=== PATIENT | female | born 1990 | race Caucasian/White ===

== ENCOUNTER → 2019-12-11 | Outpatient (CLI) | payer BC, OTHER ==
[~2019-12-11] MED LIST: CEPH500 PO; CIPR500 PO; DESOX.05TG TOP; DIPATR PO; HYDACE5 PO; HYDR1TAB94 PO; IBUP800 PO; METDOP250 PO; METO10 PO; NITR100CA PO; OXYACE5T PO; PENVK500 PO; PRED20 PO; PROG100; PROM25 PO; RXOXYACE PO; Verotin-Gr Cap1 EACH PO
[2019-12-11 11:17] LABS: Source, Urine Clean Catch
[2019-12-11 13:47] LABS: BASOPHILS ABSOLUTE AUTO 0.06 K/mm3 (0.00-0.23); BASOPHILS PERCENT AUTO 1 % (0-2); EOSINOPHILS ABSOLUTE AUTO 0.25 K/mm3 (0.00-0.68); EOSINOPHILS PERCENT AUTO 2 % (0-6); Hematocrit 39.6 % (33.0-51.0); Hemoglobin 12.5 g/dL (11.5-16.0); IMMATURE GRAN ABSOLUTE AUTO 0.09 K/mm3 (0.00-0.10); IMMATURE GRAN PERCENT AUTO 1 % (0-1); LYMPHOCYTES ABSOLUTE AUTO 2.07 K/mm3 (0.84-5.20); LYMPHOCYTES PERCENT AUTO 18 % (21-46); MONOCYTES ABSOLUTE AUTO 0.58 K/mm3 (0.16-1.47); MONOCYTES PERCENT AUTO 5 % (4-13); Mean Corpuscular HGB 27.3 pg (26.0-34.0); Mean Corpuscular HGB Conc 31.6 g/dL (31.5-36.5); Mean Corpuscular Volume 87 fL (80-100); Mean Platelet Volume 11.2 fL (9.1-12.4); NEUTROPHILS ABSOLUTE AUTO 8.53 K/mm3 (1.96-9.15); NEUTROPHILS PERCENT AUTO 74 % (41-73); Platelet Count 311 K/mm3 (150-400); RDW Coefficient Variation 14.1 % (11.7-14.2); RDW Standard Deviation 44.1 fL (35.1-46.3); Red Blood Cell Count 4.58 M/mm3 (3.80-5.20); White Blood Cell Count 11.58 K/mm3 (4.00-11.30)
[2019-12-11 14:00] LABS: Bacteria Many /hpf; Mucus Mod (0-Heavy); Squamous Epithelial Cells Many /hpf (Few); White Blood Cells, Urine 25-50 /hpf (0-5)
[2019-12-12 07:09] LABS: HBSAG SCREEN Negative (Negative); HIV SCREEN 4TH GENERATION WRFX Non Reactive (Non Reactive)
== END | disposition home or self-care (01) ==
LOC: LAB SHORT 11:12 → LAB 11:12
PROVIDERS: Obstetrics & Gynecology
DX: O99.211 Obesity complicating pregnancy, first trimester (principal)
CPT/HCPCS: 36415; 81015; 83036; 84443; 85025; 86592; 86762; 86850; 86900; 86901; 87086; 87340; 87389

== ENCOUNTER → 2020-04-15 | Outpatient (CLI) | payer BC, OTHER ==
[2020-04-15 15:42] LABS: Protein, Urine Quantitative 7.6 mg/dL (0.0-11.9)
== END | disposition home or self-care (01) ==
LOC: LAB SHORT 14:35 → LAB 14:35
PROVIDERS: Obstetrics & Gynecology
DX: O13.9 Gestational [pregnancy-induced] hypertension without significant proteinuria, unspecified trimester (principal)
CPT/HCPCS: 84156

== ENCOUNTER → 2020-06-03 | Outpatient (CLI) | payer BC, OTHER ==
[~2020-06-03] MED LIST changes: +ASPI81CH PO; +NIFE90ER PO
[2020-06-03 12:24] LABS: Protein, Urine Quantitative 19.2 mg/dL (0.0-11.9)
== END ==
LOC: LAB 08:00 → LAB SHORT 08:00
PROVIDERS: Obstetrics & Gynecology
DX: O16.9 Unspecified maternal hypertension, unspecified trimester (principal)
CPT/HCPCS: 81050; 84156

== ENCOUNTER → 2020-06-03 | Outpatient (CLI) | payer BC, OTHER ==
[2020-06-03 18:50] LABS: BASOPHILS ABSOLUTE AUTO 0.05 K/mm3 (0.00-0.23); BASOPHILS PERCENT AUTO 0 % (0-2); EOSINOPHILS PERCENT AUTO 2 % (0-6); Hemoglobin 11.4 g/dL (11.5-16.0); IMMATURE GRAN ABSOLUTE AUTO 0.26 K/mm3 (0.00-0.10); IMMATURE GRAN PERCENT AUTO 2 % (0-1); LYMPHOCYTES PERCENT AUTO 14 % (21-46); MONOCYTES ABSOLUTE AUTO 0.75 K/mm3 (0.16-1.47); MONOCYTES PERCENT AUTO 6 % (4-13); Mean Corpuscular HGB Conc 31.7 g/dL (31.5-36.5); Mean Corpuscular Volume 85 fL (80-100); Mean Platelet Volume 11.4 fL (9.1-12.4); NEUTROPHILS ABSOLUTE AUTO 10.28 K/mm3 (1.96-9.15); NEUTROPHILS PERCENT AUTO 77 % (41-73); Platelet Count 264 K/mm3 (150-400); RDW Coefficient Variation 14.8 % (11.7-14.2); RDW Standard Deviation 45.5 fL (35.1-46.3); Red Blood Cell Count 4.23 M/mm3 (3.80-5.20); White Blood Cell Count 13.44 K/mm3 (4.00-11.30)
[2020-06-03 20:24] LABS: Alanine Aminotransfer (ALT/SGP 65 U/L (12-78); Albumin, Blood 2.8 g/dL (3.4-5.0); Albumin/Globulin Ratio 0.7 (0.8-1.8); Alk Phos 136 U/L (50-136); Anion Gap 12 mmol/L (6-16); Aspartate Aminotrans (AST/SGOT 44 U/L (12-37); Bilirubin, Total 0.4 mg/dL (0.1-1.0); Blood Urea Nitrogen 7 mg/dL (8-24); Bun/Creatinine Ratio 13.9 (12.0-20.0); CO2, Blood 19 mmol/L (21-32); Chloride, Blood 107 mmol/L (98-108); Globulin, Blood 4.3 g/dL (2.2-4.0); Glomerular Filtration Rate >60 (60-); Glucose, Blood 72 mg/dL (70-99); Potassium, Blood 3.6 mmol/L (3.5-5.5); Sodium, Blood 138 mmol/L (136-145); Total Protein, Blood 7.1 g/dL (6.4-8.2)
== END | disposition home or self-care (01) ==
LOC: LAB 17:10
PROVIDERS: Obstetrics & Gynecology
DX: O09.892 Supervision of other high risk pregnancies, second trimester (principal); O12.02 Gestational edema, second trimester; O13.2 Gestational [pregnancy-induced] hypertension without significant proteinuria, second trimester
CPT/HCPCS: 36415; 80053; 85025

== ENCOUNTER 2023-01-10 01:47 | Emergency (ER) | payer BC, OTHER ==
[~2023-01-10] VITALS: Ht 162.6 cm; Wt 129.7 kg
[2023-01-10 04:37] LABS: BASOPHILS ABSOLUTE AUTO 0.05 K/mm3 (0.00-0.23); BASOPHILS PERCENT AUTO 0 % (0-2); EOSINOPHILS ABSOLUTE AUTO 0.06 K/mm3 (0.00-0.68); EOSINOPHILS PERCENT AUTO 1 % (0-6); Hematocrit 41.3 % (33.0-51.0); Hemoglobin 12.9 g/dL (11.5-16.0); IMMATURE GRAN ABSOLUTE AUTO 0.06 K/mm3 (0.00-0.10); IMMATURE GRAN PERCENT AUTO 1 % (0-1); LYMPHOCYTES ABSOLUTE AUTO 1.53 K/mm3 (0.84-5.20); LYMPHOCYTES PERCENT AUTO 12 % (21-46); MONOCYTES ABSOLUTE AUTO 0.54 K/mm3 (0.16-1.47); MONOCYTES PERCENT AUTO 4 % (4-13); Mean Corpuscular HGB 26.6 pg (26.0-34.0); Mean Corpuscular HGB Conc 31.2 g/dL (31.5-36.5); Mean Corpuscular Volume 85 fL (80-100); Mean Platelet Volume 10.7 fL (9.1-12.4); NEUTROPHILS ABSOLUTE AUTO 10.16 K/mm3 (1.96-9.15); NEUTROPHILS PERCENT AUTO 82 % (41-73); Platelet Count 318 K/mm3 (150-400); RDW Coefficient Variation 14.3 % (11.7-14.2); RDW Standard Deviation 44.1 fL (35.1-46.3); Red Blood Cell Count 4.85 M/mm3 (3.80-5.20)
[2023-01-10 05:03] LABS: Albumin, Blood 3.8 g/dL (3.4-5.0); Bilirubin, Total 0.3 mg/dL (0.1-1.0); Calcium, Blood 8.6 mg/dL (8.5-10.1); Creatinine, Blood 0.82 mg/dL (0.40-1.00); Total Protein, Blood 7.8 g/dL (6.4-8.2)
[2023-01-10 06:24] LABS: Source, Urine Clean Catch
[2023-01-10 06:56] LABS: Appearance, Urine Hazy (Clear); Bilirubin, Urine Neg (Neg); Blood, Urine 5+ (Neg); Color, Urine Amber (P-Yellow); Glucose Qualitative, Urine Neg (Neg); Ketones, Urine 1+ (Neg); Leukocyte Esterase, Urine 1+ (Neg); Nitrite, Urine Neg (Neg); Protein, Urine 2+ (Neg); Urobilinogen, Urine 1+ (Normal)
[2023-01-10 07:08] LABS: Calcium Oxalate Crystals Mod /hpf; Mucus Heavy (0-Heavy)
[2023-01-10 07:09] LABS: Bacteria Not Seen /hpf; Squamous Epithelial Cells Few /hpf (Few)
[2023-01-10] MEDS ORDERED: Percocet 5-3251 EACH PO ×2 (07:15→08:07)
[2023-01-10] MEDS ORDERED: TAMS.4ER PO (07:15)
[2023-01-10] MEDS ORDERED: ONDA4ODT MM (07:15)
[2023-01-10 08:00] VITALS: BP 115/58
== END 2023-01-10 08:13 | disposition home or self-care (01) ==
LOC: ER 01:47
PROVIDERS: Student in an Organized Health Care Education/Training Program
DX: N13.2 Hydronephrosis with renal and ureteral calculous obstruction (principal); I10 Essential (primary) hypertension
CPT/HCPCS: 74177; 80053; 81001; 83690; 85025; 96361; 96374-59; 96375; 96376; 99284-25; A9270; J1170; J1885; J2405; J7030; Q9967

== ENCOUNTER 2024-04-20 00:43 | Day surgery (SDC) | payer BC, OTHER ==
[~2024-04-20 00:43] MED LIST changes: +ONDA4ODT MM; +Percocet 5-3251 EACH PO; +Sod Ferric Gluc Complx/Sucrose 125 MG in NS 100 ML IV SCH; +TAMS.4ER PO
[2024-04-20 10:22] VITALS: BP 151/97
[2024-04-21] MEDS ORDERED: SODIUM FERRIC GLUCON IV (12:13)
== END 2024-04-20 12:02 | disposition home or self-care (01) ==
LOC: ATC 00:43
DX: E61.1 Iron deficiency (principal); R53.83 Other fatigue; E66.812 Obesity, class 2; Z68.35 Body mass index [BMI] 35.0-35.9, adult
CPT/HCPCS: 96365; J2916

== ENCOUNTER 2024-04-21 00:30 | Day surgery (SDC) | payer BC, OTHER ==
[~2024-04-21 00:30] MED LIST changes: -Sod Ferric Gluc Complx/Sucrose 125 MG in NS 100 ML IV SCH
[2024-04-21] MEDS ORDERED: Sod Ferric Gluc Complx/Sucrose 125 MG in NS 100 ML IV SCH (01:00)
[2024-04-21 10:15] VITALS: BP 123/77
[2024-04-21] MEDS ORDERED: SODIUM FERRIC GLUCON IV (12:13)
== END 2024-04-21 11:21 | disposition home or self-care (01) ==
LOC: ATC 00:30
DX: E61.1 Iron deficiency (principal); R53.83 Other fatigue; E66.812 Obesity, class 2; Z68.35 Body mass index [BMI] 35.0-35.9, adult; Z79.899 Other long term (current) drug therapy
CPT/HCPCS: 96365; J2916

== ENCOUNTER 2024-04-24 21:48 | Emergency (ER) | payer BC, OTHER ==
[~2024-04-24] VITALS: Ht 167.6 cm; Wt 95.2 kg
[~2024-04-24 21:48] MED LIST changes: +SODIUM FERRIC GLUCON IV
[2024-04-24 23:17] LABS: BASOPHILS ABSOLUTE AUTO 0.05 K/mm3 (0.00-0.23); BASOPHILS PERCENT AUTO 1 % (0-2); EOSINOPHILS ABSOLUTE AUTO 0.39 K/mm3 (0.00-0.68); EOSINOPHILS PERCENT AUTO 5 % (0-6); Hematocrit 38.4 % (33.0-51.0); Hemoglobin 12.5 g/dL (11.5-16.0); IMMATURE GRAN ABSOLUTE AUTO 0.03 K/mm3 (0.00-0.10); IMMATURE GRAN PERCENT AUTO 0 % (0-1); LYMPHOCYTES ABSOLUTE AUTO 2.73 K/mm3 (0.84-5.20); LYMPHOCYTES PERCENT AUTO 33 % (21-46); MONOCYTES PERCENT AUTO 6 % (4-13); Mean Corpuscular HGB 26.6 pg (26.0-34.0); Mean Corpuscular HGB Conc 32.6 g/dL (31.5-36.5); Mean Corpuscular Volume 82 fL (80-100); Mean Platelet Volume 11.4 fL (9.1-12.4); NEUTROPHILS ABSOLUTE AUTO 4.58 K/mm3 (1.96-9.15); NEUTROPHILS PERCENT AUTO 55 % (41-73); Platelet Count 319 K/mm3 (150-400); RDW Coefficient Variation 14.4 % (11.7-14.2); RDW Standard Deviation 42.2 fL (35.1-46.3); White Blood Cell Count 8.28 K/mm3 (4.00-11.30)
[2024-04-24 23:37] LABS: Albumin, Blood 4.3 g/dL (3.4-5.0); Albumin/Globulin Ratio 1.2 (0.8-1.8); Bilirubin, Total 0.4 mg/dL (0.1-1.0); Bun/Creatinine Ratio 18.3 (12.0-20.0); Calcium, Blood 9.1 mg/dL (8.5-10.1); Creatinine, Blood 0.66 mg/dL (0.40-1.00); Globulin, Blood 3.7 g/dL (2.2-4.0); International Normalized Ratio 1.06; Potassium, Blood 3.2 mmol/L (3.5-5.5); Prothrombin Time Results 11.3 Sec (9.7-11.5)
[2024-04-24] MEDS ORDERED: Mag Hydrox/AL Hydrox/Simeth 30 ML UDC PO ONE (23:45)
[2024-04-24] MEDS ORDERED: Lidocaine 2% Viscous Soln 15 ML UDC PO ONE (23:45)
[2024-04-24] MEDS ORDERED: Potassium Chl 20MEQ/Water100ML 100 ML IV SCH (23:45)
[2024-04-24] MEDS ORDERED: Lactated Ringer's 1,000 ML IV SCH (23:45)
[2024-04-25 00:05] LABS: Magnesium, Blood 2.1 mg/dL (1.6-2.4); Phosphorus, Blood 2.7 mg/dL (2.5-4.9); Thyroid Stimulating Hormone 5.96 uIU/mL (0.360-4.800)
[2024-04-25] MEDS ORDERED: Diazepam 5 MG / ML 2ML SYR IV ONE (00:50)
[2024-04-25] MEDS ORDERED: Ketorolac Tromethamine 30mg Vial IV ONE (01:30)
[2024-04-25 05:45] VITALS: BP 135/80
[2024-04-25] MEDS ORDERED: DIAZ2 PO (05:45)
[2024-04-25] MEDS ORDERED: FAMO20 PO (05:59)
[2024-04-25] MEDS ORDERED: ALMACONE SUSPE355 ML PO (05:59)
== END 2024-04-25 06:06 | disposition home or self-care (01) ==
LOC: ER 21:48
PROVIDERS: Emergency Medicine; Student in an Organized Health Care Education/Training Program
DX: R07.89 Other chest pain (principal); E87.6 Hypokalemia; I10 Essential (primary) hypertension; K21.9 Gastro-esophageal reflux disease without esophagitis; Z79.899 Other long term (current) drug therapy; Z59.89 Other problems related to housing and economic circumstances
CPT/HCPCS: 71046; 71275; 80053; 83735; 83880; 84100; 84443; 84484; 84703; 85025; 85610; 85730; 93005; 93010; 96365-59; 96366; 96375-59; 99284-25; A9270; J3360; J3480; J7120; Q9967

== ENCOUNTER 2024-04-27 00:08 | Day surgery (SDC) | payer BC, OTHER ==
[~2024-04-27 00:08] MED LIST changes: +ALMACONE SUSPE355 ML PO; +DIAZ2 PO; +FAMO20 PO
[2024-04-27] MEDS ORDERED: Sod Ferric Gluc Complx/Sucrose 125 MG in NS 100 ML IV SCH (01:00)
[2024-04-27 18:28] VITALS: BP 136/77
== END 2024-04-27 18:32 | disposition home or self-care (01) ==
LOC: ATC 00:08
DX: D50.8 Other iron deficiency anemias (principal); K91.89 Other postprocedural complications and disorders of digestive system; E66.812 Obesity, class 2; R53.83 Other fatigue; Z79.899 Other long term (current) drug therapy
CPT/HCPCS: J2916

== ENCOUNTER 2024-04-28 00:03 | Day surgery (SDC) | payer BC, OTHER ==
[2024-04-28] MEDS ORDERED: Sod Ferric Gluc Complx/Sucrose 125 MG in NS 100 ML IV SCH (01:00)
[2024-04-28 07:50] VITALS: BP 134/84
== END 2024-04-28 08:58 | disposition home or self-care (01) ==
LOC: ATC 00:03
DX: K91.89 Other postprocedural complications and disorders of digestive system (principal); D50.9 Iron deficiency anemia, unspecified; R53.83 Other fatigue; E66.01 Morbid (severe) obesity due to excess calories; Z68.35 Body mass index [BMI] 35.0-35.9, adult; Z79.899 Other long term (current) drug therapy; Z90.3 Acquired absence of stomach [part of]; Z90.49 Acquired absence of other specified parts of digestive tract
CPT/HCPCS: 96365; J2916

== ENCOUNTER 2024-05-04 04:28 | Day surgery (SDC) | payer BC, OTHER ==
[~2024-05-04 04:28] MED LIST changes: +Sod Ferric Gluc Complx/Sucrose 125 MG in NS 100 ML IV SCH
[2024-05-04 10:10] VITALS: BP 155/86
== END 2024-05-04 11:14 | disposition home or self-care (01) ==
LOC: ATC 04:28
DX: K91.89 Other postprocedural complications and disorders of digestive system (principal); E61.1 Iron deficiency; I10 Essential (primary) hypertension; E66.812 Obesity, class 2; Z68.35 Body mass index [BMI] 35.0-35.9, adult; Z79.899 Other long term (current) drug therapy; Z90.3 Acquired absence of stomach [part of]; Z90.49 Acquired absence of other specified parts of digestive tract
CPT/HCPCS: 96365; J2916

== ENCOUNTER 2024-05-05 05:18 | Day surgery (SDC) | payer BC, OTHER ==
[2024-05-05 08:57] VITALS: BP 147/81
== END 2024-05-05 10:07 | disposition home or self-care (01) ==
LOC: ATC 05:18
DX: K91.89 Other postprocedural complications and disorders of digestive system (principal); D50.8 Other iron deficiency anemias; E66.812 Obesity, class 2; Z68.35 Body mass index [BMI] 35.0-35.9, adult; Z79.899 Other long term (current) drug therapy; Z90.3 Acquired absence of stomach [part of]; Z90.49 Acquired absence of other specified parts of digestive tract
CPT/HCPCS: 96365; J2916

== ENCOUNTER 2024-05-11 03:32 | Day surgery (SDC) | payer BC, OTHER ==
[2024-05-11 10:16] VITALS: BP 126/87
== END 2024-05-11 11:10 | disposition home or self-care (01) ==
LOC: ATC 03:32
DX: D50.9 Iron deficiency anemia, unspecified (principal); R53.83 Other fatigue; K91.89 Other postprocedural complications and disorders of digestive system; E66.812 Obesity, class 2; Z68.35 Body mass index [BMI] 35.0-35.9, adult
CPT/HCPCS: 96365; J2916

== ENCOUNTER 2024-05-12 02:17 | Day surgery (SDC) | payer BC, OTHER ==
[2024-05-12 09:13] VITALS: BP 137/90
== END 2024-05-12 10:19 | disposition home or self-care (01) ==
LOC: ATC 02:17
DX: D50.8 Other iron deficiency anemias (principal); K91.89 Other postprocedural complications and disorders of digestive system; E66.812 Obesity, class 2; Z68.35 Body mass index [BMI] 35.0-35.9, adult; Z79.899 Other long term (current) drug therapy
CPT/HCPCS: 96365; J2916

== ENCOUNTER → 2024-06-08 | Outpatient (CLI) | payer BC, OTHER ==
[~2024-06-08] MED LIST changes: -Sod Ferric Gluc Complx/Sucrose 125 MG in NS 100 ML IV SCH
[2024-06-08 17:02] LABS: Source, Urine Clean Catch
[2024-06-08 17:50] LABS: Calcium Oxalate Crystals Many /hpf; Mucus Mod (0-Heavy); Squamous Epithelial Cells Many /hpf (Few)
[2024-06-08 17:51] LABS: Amorphous Light (0-Heavy); Bacteria Many /hpf; Red Blood Cells, Urine 0-2 /hpf (0-2)
[2024-06-08 17:52] LABS: White Blood Cells, Urine 25-50 /hpf (0-5)
[2024-06-08 17:56] LABS: U Amphetamine Screen Not Detected; U Barbituate Screen Not Detected; U Benzodiazapine Screen Not Detected; U Buprenorphine Screen Not Detected; U Cannabinoids Screen Not Detected; U Cocaine Screen Not Detected; U Methadone Screen Not Detected; U Methamphetamine Screen Not Detected; U Opiates Screen Not Detected; U Oxycodone Screen Not Detected; U Phencyclidine Screen Not Detected
== END ==
LOC: LAB SHORT 16:58 → LAB 16:58
PROVIDERS: Advanced Practice Midwife
DX: O09.90 Supervision of high risk pregnancy, unspecified, unspecified trimester (principal); Z3A.00 Weeks of gestation of pregnancy not specified
CPT/HCPCS: 81015; 87086

== ENCOUNTER → 2024-10-11 | Outpatient (CLI) | payer BC, OTHER ==
[2024-10-11 20:32] LABS: Chlamydia Trachomatis Urine NOT DETECTED (NOT DETECT); Neisseria Gonorrhoea Urine NOT DETECTED (NOT DETECT)
== END ==
LOC: LAB SHORT 17:35 → LAB 17:35
PROVIDERS: Family Medicine
DX: Z34.81 Encounter for supervision of other normal pregnancy, first trimester (principal); Z3A.01 Less than 8 weeks gestation of pregnancy
CPT/HCPCS: 87086; 87491; 87591

== ENCOUNTER → 2024-10-26 | Outpatient (CLI) | payer BC, OTHER ==
[2024-10-26 19:46] LABS: Protein, Urine Quantitative 18.2 mg/dL (0.0-11.9)
== END ==
LOC: LAB SHORT 17:20 → LAB 17:20
PROVIDERS: Family Medicine
DX: O09.521 Supervision of elderly multigravida, first trimester (principal); Z3A.00 Weeks of gestation of pregnancy not specified
CPT/HCPCS: 84156

== ENCOUNTER → 2025-01-15 | Outpatient (CLI) | payer BC, OTHER ==
[2025-01-15 18:46] LABS: Protein, Urine Quantitative 17.1 mg/dL (0.0-11.9)
== END ==
LOC: LAB SHORT 15:04 → LAB 15:04 → EDSTATUS 01-11 12:10 → LAB FUT 01-11 12:10
PROVIDERS: Family Medicine
DX: O09.521 Supervision of elderly multigravida, first trimester (principal)
CPT/HCPCS: 81050; 84156

== ENCOUNTER 2025-01-19 01:16 | Day surgery (SDC) | payer BC, OTHER ==
[~2025-01-19 01:16] MED LIST changes: +OMEP20ER PO; +ONE-A-DAY PREN1 EAC1 PO
[2025-01-19] MEDS ORDERED: Sod Ferric Gluc Complx/Sucrose 125 MG in NS 100 ML IV SCH (06:00)
[2025-01-19 14:17] VITALS: BP 114/79
== END 2025-01-19 15:17 | disposition home or self-care (01) ==
LOC: ATC 01:16
DX: E61.1 Iron deficiency (principal); E66.812 Obesity, class 2; E66.09 Other obesity due to excess calories; Z68.35 Body mass index [BMI] 35.0-35.9, adult; Z79.899 Other long term (current) drug therapy; Z98.84 Bariatric surgery status
CPT/HCPCS: 96365; J2916

== ENCOUNTER 2025-01-25 03:00 | Day surgery (SDC) | payer BC, OTHER ==
[2025-01-25] MEDS ORDERED: Sod Ferric Gluc Complx/Sucrose 125 MG in NS 100 ML IV SCH (06:00)
[2025-01-25 14:05] VITALS: BP 122/78
== END 2025-01-25 15:03 | disposition home or self-care (01) ==
LOC: ATC 03:00
DX: E61.1 Iron deficiency (principal); Z98.84 Bariatric surgery status; Z90.49 Acquired absence of other specified parts of digestive tract
CPT/HCPCS: 96365; J2916

== ENCOUNTER 2025-01-26 01:03 | Day surgery (SDC) | payer BC, OTHER ==
[~2025-01-26 01:03] MED LIST changes: +Sod Ferric Gluc Complx/Sucrose 125 MG in NS 100 ML IV SCH
[2025-01-26 14:03] VITALS: BP 118/76
[2025-01-26 15:51] LABS: BASOPHILS ABSOLUTE AUTO 0.05 K/mm3 (0.00-0.23); BASOPHILS PERCENT AUTO 0 % (0-2); EOSINOPHILS ABSOLUTE AUTO 0.24 K/mm3 (0.00-0.68); EOSINOPHILS PERCENT AUTO 2 % (0-6); Hematocrit 34.1 % (33.0-51.0); Hemoglobin 11.2 g/dL (11.5-16.0); IMMATURE GRAN ABSOLUTE AUTO 0.13 K/mm3 (0.00-0.10); IMMATURE GRAN PERCENT AUTO 1 % (0-1); LYMPHOCYTES ABSOLUTE AUTO 2.37 K/mm3 (0.84-5.20); LYMPHOCYTES PERCENT AUTO 19 % (21-46); MONOCYTES ABSOLUTE AUTO 0.63 K/mm3 (0.16-1.47); MONOCYTES PERCENT AUTO 5 % (4-13); Mean Corpuscular HGB Conc 32.8 g/dL (31.5-36.5); Mean Corpuscular Volume 86 fL (80-100); NEUTROPHILS ABSOLUTE AUTO 9.33 K/mm3 (1.96-9.15); NEUTROPHILS PERCENT AUTO 73 % (41-73); NRBC ABSOLUTE 0.00 K/mm3 (0.00-0.02); NRBC Auto 0.0 /100 WBC (0.0-0.2); Platelet Count 281 K/mm3 (150-400); RDW Coefficient Variation 15.5 % (11.7-14.2); RDW Standard Deviation 47.8 fL (35.1-46.3)
[2025-01-26 16:26] LABS: Total Iron Binding Capacity 404.0 ug/dL (250-450)
[2025-01-26 16:56] LABS: Ferritin, Serum 148.0 ng/mL (8-252)
== END 2025-01-26 15:37 | disposition home or self-care (01) ==
LOC: ATC 01:03
PROVIDERS: Family Medicine
DX: E61.1 Iron deficiency (principal); E66.812 Obesity, class 2; E66.09 Other obesity due to excess calories; Z68.35 Body mass index [BMI] 35.0-35.9, adult; Z79.899 Other long term (current) drug therapy; Z98.84 Bariatric surgery status; Z98.890 Other specified postprocedural states
CPT/HCPCS: 82728; 83540; 83550; 85025; 96365; J2916

== ENCOUNTER 2025-02-01 03:42 | Day surgery (SDC) | payer BC, OTHER ==
[~2025-02-01 03:42] MED LIST changes: -Sod Ferric Gluc Complx/Sucrose 125 MG in NS 100 ML IV SCH
== END 2025-02-01 08:18 | disposition home or self-care (01) ==
LOC: ATC 03:42
DX: Z45.2 Encounter for adjustment and management of vascular access device (principal); E61.1 Iron deficiency; E66.812 Obesity, class 2; Z68.35 Body mass index [BMI] 35.0-35.9, adult
CPT/HCPCS: 99211

== ENCOUNTER → 2025-03-05 | Outpatient (CLI) | payer BC, OTHER | LOC: LAB 17:55 → LAB SHORT 17:55 | DX: R30.0 Dysuria (principal) | CPT/HCPCS: 87086 ==

== ENCOUNTER → 2025-04-03 | Outpatient (CLI) | payer BC, OTHER ==
[2025-04-03 20:45] LABS: Protein, Urine Quantitative 18.2 mg/dL (0.0-11.9)
== END ==
LOC: LAB 17:42 → LAB SHORT 17:42
PROVIDERS: Family Medicine
DX: O13.9 Gestational [pregnancy-induced] hypertension without significant proteinuria, unspecified trimester (principal); Z3A.00 Weeks of gestation of pregnancy not specified
CPT/HCPCS: 84156

== ENCOUNTER 2025-05-07 07:01 | Inpatient (IN) | payer BC, OTHER ==
[~2025-05-07] VITALS: Ht 162.6 cm; Wt 95.9 kg
[2025-05-07] VITALS (42 sets, daily range): BP systolic 83–144; BP diastolic 49–82
[2025-05-07] MEDS ORDERED: Oxytocin 10 Unit / ML Vial IM PRN (07:40)
[2025-05-07] MEDS ORDERED: FentaNYL Citrate 50 MCG/ML 2 ML Injection IV PRN (07:40)
[2025-05-07] MEDS ORDERED: Tranexamic Acid 100 ML IV SCH (07:40)
[2025-05-07] MEDS ORDERED: OXYTOCIN/RINGER'S LACTATE 500 ML IV PRN (07:40)
[2025-05-07] MEDS ORDERED: Methylergonovine Maleate 0.2MG / ML 1ML Amp IM PRN ×2 (07:40→22:05)
[2025-05-07] MEDS ORDERED: Carboprost Tromethamine 250 MCG/ML 1ML Amp IM PRN ×2 (07:40→22:10)
[2025-05-07] MEDS ORDERED: Ondansetron HCl 2 MG / ML 2ML Vial IV PRN (07:45)
[2025-05-07 07:59] LABS: BASOPHILS ABSOLUTE AUTO 0.07 K/mm3 (0.00-0.23); BASOPHILS PERCENT AUTO 1 % (0-2); EOSINOPHILS ABSOLUTE AUTO 0.12 K/mm3 (0.00-0.68); EOSINOPHILS PERCENT AUTO 1 % (0-6); Hematocrit 36.6 % (33.0-51.0); Hemoglobin 12.3 g/dL (11.5-16.0); IMMATURE GRAN ABSOLUTE AUTO 0.26 K/mm3 (0.00-0.10); IMMATURE GRAN PERCENT AUTO 2 % (0-1); LYMPHOCYTES ABSOLUTE AUTO 2.11 K/mm3 (0.84-5.20); LYMPHOCYTES PERCENT AUTO 16 % (21-46); MONOCYTES ABSOLUTE AUTO 0.80 K/mm3 (0.16-1.47); MONOCYTES PERCENT AUTO 6 % (4-13); Mean Corpuscular HGB Conc 33.6 g/dL (31.5-36.5); Mean Corpuscular Volume 86 fL (80-100); NEUTROPHILS ABSOLUTE AUTO 9.54 K/mm3 (1.96-9.15); NEUTROPHILS PERCENT AUTO 74 % (41-73); NRBC ABSOLUTE 0.00 K/mm3 (0.00-0.02); NRBC Auto 0.0 /100 WBC (0.0-0.2); Platelet Count 218 K/mm3 (150-400); RDW Coefficient Variation 14.0 % (11.7-14.2); RDW Standard Deviation 43.0 fL (35.1-46.3)
[2025-05-07] MEDS ORDERED: NIFE30ER PO (08:17)
[2025-05-07] MEDS ORDERED: BARIATRIC MULT1 EACH PO (08:18)
[2025-05-07 08:41] LABS: Alanine Aminotransfer (ALT/SGP 20.0 U/L (12-78); Albumin, Blood 2.5 g/dL (3.4-5.0); Albumin/Globulin Ratio 0.6 (0.8-1.8); Anion Gap 9.0 mmol/L (3-11); Aspartate Aminotrans (AST/SGOT 53.0 U/L (12-37); Bilirubin, Total 0.5 mg/dL (0.1-1.0); Blood Urea Nitrogen 7.0 mg/dL (8-24); CO2, Blood 19.0 mmol/L (21-32); Calcium, Blood 8.5 mg/dL (8.5-10.1); Chloride, Blood 113.0 mmol/L (98-108); Creatinine, Blood 0.49 mg/dL (0.40-1.00); Globulin, Blood 4.2 g/dL (2.2-4.0); Glucose, Blood 80.0 mg/dL (70-99); Potassium, Blood 5.2 mmol/L (3.5-5.5); Sodium, Blood 136.0 mmol/L (136-145); Total Protein, Blood 6.7 g/dL (6.4-8.2)
[2025-05-07] MEDS ORDERED: FentaNYL 2mcg/ml-Bup 0.1% Epd 250 ML EPI PRN (12:55)
[2025-05-07] MEDS ORDERED: OXYTOCIN/RINGER'S LACTATE 500 ML IV SCH (12:55)
[2025-05-07] MEDS ORDERED: ePHEDrine Sulfate 50 MG/ML 1ML Injection XX PRN (12:55)
[2025-05-07] MEDS ORDERED: Benzocaine Topical Anesthetic Spray 60GM TOP PRN (22:10)
[2025-05-07] MEDS ORDERED: FLU VACC TS2025-26(6MOS UP)/PF 45 MCG/0.5 ML SYRINGE IM SCH (22:15)
[2025-05-07] MEDS ORDERED: OxyCODONE 5 mg/Acetamin 325 mg TABLET PO PRN (22:15)
[2025-05-07] MEDS ORDERED: Witch Hazel/Glycerin PADS TOP PRN (22:15)
[2025-05-08] MEDS ORDERED: Ketorolac Tromethamine 30mg Vial IV SCH
[2025-05-08 02:15] VITALS: BP 140/76
[2025-05-08 05:56] LABS: BASOPHILS ABSOLUTE AUTO 0.05 K/mm3 (0.00-0.23); BASOPHILS PERCENT AUTO 0 % (0-2); EOSINOPHILS ABSOLUTE AUTO 0.14 K/mm3 (0.00-0.68); EOSINOPHILS PERCENT AUTO 1 % (0-6); Hematocrit 34.8 % (33.0-51.0); Hemoglobin 11.7 g/dL (11.5-16.0); IMMATURE GRAN ABSOLUTE AUTO 0.19 K/mm3 (0.00-0.10); IMMATURE GRAN PERCENT AUTO 1 % (0-1); LYMPHOCYTES ABSOLUTE AUTO 2.33 K/mm3 (0.84-5.20); LYMPHOCYTES PERCENT AUTO 15 % (21-46); MONOCYTES ABSOLUTE AUTO 1.08 K/mm3 (0.16-1.47); MONOCYTES PERCENT AUTO 7 % (4-13); Mean Corpuscular HGB Conc 33.6 g/dL (31.5-36.5); Mean Corpuscular Volume 87 fL (80-100); NEUTROPHILS ABSOLUTE AUTO 11.92 K/mm3 (1.96-9.15); NEUTROPHILS PERCENT AUTO 76 % (41-73); NRBC ABSOLUTE 0.00 K/mm3 (0.00-0.02); NRBC Auto 0.0 /100 WBC (0.0-0.2); Platelet Count 273 K/mm3 (150-400); RDW Coefficient Variation 13.7 % (11.7-14.2); RDW Standard Deviation 42.8 fL (35.1-46.3)
[2025-05-08] MEDS ORDERED: Prenatal Vit/FE Fumarate/FA 1 Tab PO SCH (09:00)
[2025-05-08 10:42] VITALS: BP 133/62
--- NOTE | 2025-05-08 11:51 | NUR ---
PT UP IN THE NURSERY ALL MORNING WITH BABY. DENIES PAIN. LOCHIA SCANT. PT HAS NO COMPLAINTS. NIFEDIPINE XR HELD THIS AM FOR BP WNL. PT WANTING TO TRY TO STOP TAKING IT NOW. STABLE.
--- NOTE | 2025-05-08 17:29 | NUR ---
PT HAS BEEN IN THE NURSERY ALL DAY W/ . DENIES PAIN. PT WILL CALL WHEN READY FOR VS.
--- NOTE | 2025-05-08 18:26 | NUR ---
DR. ANDREWS HERE, PLANS TO MOVE PT TO BOARDER STATUS. PER , OK TO D/C NIFEDIPINE. PT HAS NO COMPLAINTS, BONDING WELL W/ BABY IN NURSERY.
[2025-05-08 18:32] VITALS: BP 140/79
[2025-05-08] MEDS ORDERED: FLU VACC TS2025-26(6MOS UP)/PF 45 MCG/0.5 ML SYRINGE IM SCH (18:35)
[2025-05-08 22:34] VITALS: BP 130/65
--- NOTE | 2025-05-08 22:40 | NUR ---
DISCHARGE NOTE; REVIEWED DC INSTRUCTIONS WITH PT, PT DENIES ANY FURTHER QUESTIONS AT THIS TIME. PT GIVEN FOLLOW UP APPOINTMENT CARD. PT TO BE MOVED TO BOARDER STATUS NOW.
== END 2025-05-08 23:10 | disposition home or self-care (01) | DRG 807 ==
LOC: OBS 07:01 → BC 07:02 → OBS 07:10 → BC 07:11
PROVIDERS: ADMIT Family Medicine
PROC: 10E0XZZ Delivery of Products of Conception, External Approach (ICD-10-PCS; principal; 2025-05-07)
PROC: 0HQ9XZZ Repair Perineum Skin, External Approach (ICD-10-PCS; 2025-05-07)
PROC: 3E0R3BZ Introduction of Anesthetic Agent into Spinal Canal, Percutaneous Approach (ICD-10-PCS; 2025-05-07)
PROC: 00HU33Z Insertion of Infusion Device into Spinal Canal, Percutaneous Approach (ICD-10-PCS; 2025-05-07)
PROC: 3E02340 Introduction of Influenza Vaccine into Muscle, Percutaneous Approach (ICD-10-PCS; 2025-05-08)
DX: O10.92 Unspecified pre-existing hypertension complicating childbirth (principal); Z37.0 Single live birth; Z3A.37 37 weeks gestation of pregnancy; O70.0 First degree perineal laceration during delivery; Z23 Encounter for immunization
CPT/HCPCS: 36415; 51701; 59414; 80053; 85025; 86850; 86870; 86900; 86901; 86922; A9270; J1885; J2590; J7120